=== PATIENT | male | born 2000 | race Two or more races ===

== ENCOUNTER 2019-08-18 20:04 | Emergency (ER) | payer MEDICAID ==
--- NOTE | 2019-08-18 20:52 | EDM.PDOC ---
ED HPI GENERAL MEDICAL PROBLEM - General Chief Complaint: Chest Pain Stated Complaint: CHEST PAIN COMES AND GOES Time Seen by Provider: 08/18/19 20:52 - History of Present Illness INITIAL COMMENTS - FREE TEXT/NARRATIVE: 19-year-old male presents the emergency room with lower chest pain and burning. Patient awoke with this today and it progressively got worse and seems to come and go. He describes a burning sensation behind his mid chest. Patient has not had problems like this in the past. Drinking fluids can make this worse such as water. The patient has not had problems with this waking him up. Epigastric Pain Score (Numeric/FACES): 9 - Related Data Allergies Allergy/AdvReac Type Severity Reaction Status Date / Time No Known Allergies Allergy Verified 08/18/19 20:11 Home Meds: Home Meds Sucralfate [Carafate] 1 gm PO ASDIRECTED #24 tablet 08/18/19 [Rx] Past Medical History - Past Health History Medical/Surgical History: Denies Medical/Surgical History Social & Family History - Tobacco Use Smoking Status *Q: Never Smoker ED ROS GENERAL - Review of Systems Review Of Systems: See Below Constitutional: Reports: No Symptoms Respiratory: Reports: No Symptoms Cardiovascular: Reports: Other (see HPI) GI/Abdominal: Denies: Abdominal Pain, Constipation, Diarrhea, Nausea, Vomiting ED EXAM, GENERAL - Physical Exam Exam: See Below Exam Limited By: No Limitations General Appearance: Alert, No Apparent Distress Respiratory/Chest: No Respiratory Distress, Lungs Clear, Chest Non-Tender Cardiovascular: Regular Rate, Rhythm, No Edema, No Murmur GI/Abdominal: Normal Bowel Sounds, Soft, Other (He is having moderate epigastric tenderness this seems to mimic the discomfort that brought him in. No other abnormalities noted on abdominal exam no rigidity rebound or guarding appreciated) Course - Vital Signs Last Recorded V/S: Last Vital Signs Temp 36.4 C 08/18/19 20:11 Pulse 76 08/18/19 20:11 Resp 20 08/18/19 20:11 BP 151/84 H 08/18/19 20:11 Pulse Ox 95 08/18/19 20:11 - Orders/Labs/Meds Orders: Active Orders 24 hr Category Date Time Status Pantoprazole [ProTONIX] Med 08/19/19 21:23 Once 40 mg PO ONETIME ONE Medication Orders Pantoprazole Sodium (Protonix) 40 mg PO ONETIME ONE Stop: 08/19/19 21:24 Meds: Medications Generic Name Dose Route Start Last Admin Trade Name Coco PRN Reason Stop Dose Admin Pantoprazole Sodium 40 mg 08/19/19 21:23 Protonix PO 08/19/19 21:24 ONETIME ONE Discontinued Medications Generic Name Dose Route Start Last Admin Trade Name Abhijitq PRN Reason Stop Dose Admin Al Hydroxide/Mg Hydroxide 30 0 ml 08/18/19 20:58 08/18/19 21:07 ml/ Lidocaine HCl 15 ml PO 08/18/19 20:59 45 ml ONETIME ONE Administration Sucralfate 2 gm 08/18/19 21:24 Carafate PO 08/18/19 21:25 ONETIME ONE - Re-Assessments/Exams Free Text/Narrative Re-Assessment/Exam: 08/18/19 21:29 Patient was given a GI cocktail and had prompt complete improvement of symptoms. Patient will be discharged on Carafate and omeprazole Departure - Departure Time of Disposition: 21:30 Disposition: Home, Self-Care 01 Clinical Impression: Gastro-esophageal reflux, Dyspepsia - Discharge Information Prescriptions: Sucralfate [Carafate] 1 gm PO ASDIRECTED #24 tablet Referrals: PCP,Not In Area [Primary Care Provider] - Forms: ED Department Discharge Additional Instructions: Return to the emergency room with any questions problems or worsening symptoms. Take the Carafate as directed. 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 Follow-up at the Hospital clinic in 1 week for recheck [phone] Sepsis Event Note - Evaluation Sepsis Screening Result: No Definite Risk - Focused Exam Vital Signs: Vital Signs Temp Pulse Resp BP Pulse Ox 08/18/19 20:11 36.4 C 76 20 151/84 H 95 Date Exam was Performed: 08/18/19 Time Exam was Performed: 21:25 - My Orders Last 24 Hours: My Active Orders 08/19/19 21:23 Pantoprazole [ProTONIX] 40 mg PO ONETIME ONE - Assessment/Plan Last 24 Hours: My Active Orders 08/19/19 21:23 Pantoprazole [ProTONIX] 40 mg PO ONETIME ONE
[2019-08-18] MEDS ORDERED: Alum Hydrox/Mag Hydrox/Simeth 30 ML, Lidocaine 2% 15 ML PO ONE ×2 (20:58)
[2019-08-18] MEDS ORDERED: Pantoprazole 40 MG Tab.CR PO ONE (21:23)
[2019-08-18] MEDS ORDERED: Sucralfate Suspension 1 GM/10 ML Cup PO ONE (21:24)
[2019-08-19] MEDS ORDERED: Pantoprazole 40 MG Tab.CR PO ONE (21:23)
== END 2019-08-18 21:47 | disposition home or self-care (01) ==
LOC: JD.ED 20:04
DX: K21.9 Gastro-esophageal reflux disease without esophagitis (principal)
CPT/HCPCS: 99284; A9270